=== PATIENT | male | born 1955 | race African-American/Black ===

== ENCOUNTER 2023-04-18 12:20 | Outpatient (REF) | payer BC, SELFPAY ==
[2023-04-18 14:10] LABS: Anion Gap 11 (12-20); Blood Urea Nitrogen 15 mg/dL (9-16); Calcium 10.7 mg/dL (8.4-10.2); Carbon Dioxide 25 mmol/L (22-29); Chloride 111 mmol/L (96-108); Estimated Glomerular Filt Rate > 60; Glucose Random 76 mg/dL (60-115); Potassium 4.3 mmol/L (3.3-5.1); Sodium 143 mmol/L (135-145)
[2023-04-18 14:36] LABS: Folate 5.4 ng/mL (> or = 4.0); Vitamin B12 636 pg/mL (200-900)
[2023-04-20 03:45] LABS: Lyme Abs Screen <0.90 index
== END 2023-04-18 12:21 | disposition home or self-care (01) ==
LOC: HO.LAB 12:20
PROVIDERS: Internal Medicine; Visit Provider Psychiatry & Neurology Neurology
DX: G62.9 Polyneuropathy, unspecified (principal)
CPT/HCPCS: 80048; 82607; 82746; 86335; 86617; 86618

== ENCOUNTER 2023-05-30 08:13 | Outpatient (REF) | payer BC, MEDICARE, SELFPAY ==
[2023-05-30 09:41] LABS: Erythrocyte Sedimentation Rate 9 MM/HR (0-15)
[2023-05-30 09:42] LABS: Anion Gap 10 (12-20); Blood Urea Nitrogen 13 mg/dL (9-16); Calcium 9.6 mg/dL (8.4-10.2); Carbon Dioxide 24 mmol/L (22-29); Chloride 112 mmol/L (96-108); Estimated Glomerular Filt Rate > 60; Glucose Fasting 100 mg/dL (60-99); Potassium 4.3 mmol/L (3.3-5.1); Sodium 142 mmol/L (135-145)
[2023-05-30 10:12] LABS: Vitamin B12 605 pg/mL (200-900)
[2023-06-02 06:03] LABS: Lyme Abs Screen <0.90 index
[2023-06-06 10:04] LABS: IgA 317 mg/dL (70-320); IgG 1074 mg/dL (600-1540); IgM 62 mg/dL (50-300)
== END 2023-05-30 08:14 | disposition home or self-care (01) ==
LOC: HO.LAB 08:13
PROVIDERS: PCP Internal Medicine; Visit Provider Psychiatry & Neurology Neurology
DX: G62.9 Polyneuropathy, unspecified (principal)
CPT/HCPCS: 36415; 80048; 82607; 82746; 82784; 85652; 86334; 86617; 86618